=== PATIENT | female | born 1950 ===

== ENCOUNTER 2021-10-31 09:09 | Day surgery (SDC) | payer MEDICARE, OTHER ==
[~2021-10-31] VITALS: Ht 170.2 cm; Wt 112.2 kg
[~2021-10-31 09:09] MED LIST: ACET325 PO; ASCO500 PO; ASPI81EC PO; Alph-E-Mixed400 UNIT; Aspir 8181 MG PO; BEET ROOT; CAL MAG PO; CO Q10100 MG PO; FOLI1 PO; GARLIC200 MG PO; HYDCHL25 PO; LORA10ER PO; Lisinopril2.5 MG PO; MAGNESIUM250 MG PO; ONDA4ODT MM; SIMV10 PO; TRAM50 PO; VITAMIN D325 MC3 PO; VITAMIN SUPPLEMENTS; ZYRTEC10 M2 PO; [UNRECOGNIZED DRUG - OTHER] PO
[2021-10-31] MEDS ORDERED: PRESERVISION A1 EAC1 (09:53)
== END 2021-10-31 11:46 | disposition home or self-care (01) ==
LOC: ORSCSDS 09:09
PROVIDERS: Internal Medicine Gastroenterology
PROC: 0DBE8ZX Excision of Large Intestine, Via Natural or Artificial Opening Endoscopic, Diagnostic (ICD-10-PCS; principal; 2021-10-31 10:30)
DX: R19.5 Other fecal abnormalities (principal); R19.4 Change in bowel habit; Z86.010 Personal history of colon polyps; K57.30 Diverticulosis of large intestine without perforation or abscess without bleeding; I10 Essential (primary) hypertension; G47.33 Obstructive sleep apnea (adult) (pediatric); E66.9 Obesity, unspecified; Z68.38 Body mass index [BMI] 38.0-38.9, adult; Z79.899 Other long term (current) drug therapy; Z79.82 Long term (current) use of aspirin
CPT/HCPCS: 88305; J2704; J7120

== ENCOUNTER 2022-07-18 09:42 | Day surgery (SDC) | payer MEDICARE, OTHER ==
[~2022-07-18] VITALS: Ht 172.7 cm; Wt 111.9 kg
[~2022-07-18 09:42] MED LIST changes: +PRESERVISION A1 EAC1
--- NOTE | 2022-07-18 10:24 | NUR ---
07/18/22 1024 KASSIE PALMA IN AT 1006 RADHA IN AT 1008
== END 2022-07-18 11:26 | disposition home or self-care (01) ==
LOC: ORSCSDS 09:42
PROVIDERS: Ophthalmology
PROC: 08RJ3JZ Replacement of Right Lens with Synthetic Substitute, Percutaneous Approach (ICD-10-PCS; principal; 2022-07-18 11:00)
DX: H25.11 Age-related nuclear cataract, right eye (principal); Z96.1 Presence of intraocular lens; I10 Essential (primary) hypertension; G47.33 Obstructive sleep apnea (adult) (pediatric); E66.9 Obesity, unspecified; Z68.37 Body mass index [BMI] 37.0-37.9, adult; Z79.899 Other long term (current) drug therapy
CPT/HCPCS: J2001; J2250; J3010; J3301; V2632

== ENCOUNTER 2022-08-06 13:14 | Day surgery (SDC) | payer MEDICARE, OTHER ==
[~2022-08-06] VITALS: Ht 172.7 cm; Wt 110.2 kg
== END 2022-08-06 15:04 | disposition home or self-care (01) ==
LOC: ORSCSDS 13:14
PROVIDERS: Ophthalmology
PROC: 08DK3ZZ Extraction of Left Lens, Percutaneous Approach (ICD-10-PCS; principal; 2022-08-06 14:30)
DX: H25.12 Age-related nuclear cataract, left eye (principal); Z96.1 Presence of intraocular lens; E78.5 Hyperlipidemia, unspecified; I10 Essential (primary) hypertension; G47.33 Obstructive sleep apnea (adult) (pediatric); E66.9 Obesity, unspecified; Z68.36 Body mass index [BMI] 36.0-36.9, adult; Z79.82 Long term (current) use of aspirin; Z79.899 Other long term (current) drug therapy
CPT/HCPCS: J2001; J2250; J3010; J3301; J7040; V2632

== ENCOUNTER → 2024-07-30 | Outpatient (CLI) | payer MEDICARE, OTHER ==
[2024-07-30 11:13] LABS: BASOPHILS ABSOLUTE AUTO 0.04 K/mm3 (0.00-0.23); BASOPHILS PERCENT AUTO 1 % (0-2); EOSINOPHILS ABSOLUTE AUTO 0.13 K/mm3 (0.00-0.68); EOSINOPHILS PERCENT AUTO 2 % (0-6); Hematocrit 40.3 % (33.0-51.0); Hemoglobin 12.9 g/dL (11.5-16.0); IMMATURE GRAN ABSOLUTE AUTO 0.01 K/mm3 (0.00-0.10); IMMATURE GRAN PERCENT AUTO 0 % (0-1); LYMPHOCYTES ABSOLUTE AUTO 1.48 K/mm3 (0.84-5.20); LYMPHOCYTES PERCENT AUTO 23 % (21-46); MONOCYTES ABSOLUTE AUTO 0.41 K/mm3 (0.16-1.47); MONOCYTES PERCENT AUTO 6 % (4-13); Mean Corpuscular HGB 29.6 pg (26.0-34.0); Mean Corpuscular Volume 92 fL (80-100); NEUTROPHILS ABSOLUTE AUTO 4.37 K/mm3 (1.96-9.15); NEUTROPHILS PERCENT AUTO 68 % (41-73); Platelet Count 226 K/mm3 (150-400); RDW Coefficient Variation 13.2 % (11.7-14.2); RDW Standard Deviation 44.2 fL (35.1-46.3); Red Blood Cell Count 4.36 M/mm3 (3.80-5.20); White Blood Cell Count 6.44 K/mm3 (4.00-11.30)
[2024-07-30 11:24] LABS: Albumin, Blood 3.7 g/dL (3.4-5.0); Albumin/Globulin Ratio 0.9 (0.8-1.8); Bilirubin, Total 0.6 mg/dL (0.1-1.0); Bun/Creatinine Ratio 25.5 (12.0-20.0); Calcium, Blood 9.1 mg/dL (8.5-10.1); Creatinine, Blood 1.02 mg/dL (0.40-1.00); Globulin, Blood 4.3 g/dL (2.2-4.0); Potassium, Blood 4.1 mmol/L (3.5-5.5)
== END | disposition home or self-care (01) ==
LOC: LAB 11:06 → LAB SHORT 11:06
PROVIDERS: Physician Assistant Surgical
DX: R07.89 Other chest pain (principal)
CPT/HCPCS: 80053; 83690; 84484; 85025